=== PATIENT | male | born 1960 | race African-American/Black ===

== ENCOUNTER → 2017-08-29 | Outpatient (CLI) | payer BC ==
[2017-08-29 09:17] LABS: BASOPHILS % 0.9 % (0.0-2.0); EOSINOPHILS % 7.5 % (0.0-5.0); LYMPHOCYTES % 31.9 % (20.0-50.0); MEAN CORPUSCULAR HEMOGLOBIN 29.6 pg (28.0-32.0); MEAN CORPUSCULAR VOLUME 88.6 fL (80.0-94.0); MEAN PLATELET VOLUME 7.9 fl (7.4-10.4); MONOCYTES % 8.9 % (2.0-8.0); NEUTROPHILS % 50.8 % (40.0-76.0); PLATELET 227 x1000/uL (130-400); RED BLOOD CELL COUNT 4.06 mill/uL (4.7-6.1)
[2017-08-29 09:27] LABS: PARTIAL THROMBOPLASTIN TIME 29.9 sec (23.4-31.0); PROTHROMBIN TIME 10.8 sec (9.4-11.6)
[2017-08-29 10:00] LABS: GLUCOSE URINE NEGATIVE (NEGATIVE); KETONES URINE NEGATIVE (NEGATIVE); LEUKOCYTE ESTERASE URINE NEGATIVE (NEGATIVE); NITRITE URINE NEGATIVE (NEGATIVE); OCCULT BLOOD URINE NEGATIVE (NEGATIVE); PH URINE 5.5 (4.5-8.0); PROTEIN URINE NEGATIVE (NEGATIVE); SPECIFIC GRAVITY URINE 1.022 (1.005-1.030); UROBILINOGEN URINE 0.2 E.U./dL (0.2-1.0)
[2017-08-29 10:04] LABS: CLARITY URINE CLEAR (CLEAR); COLOR URINE YELLOW (YELLOW)
[2017-08-29 11:07] LABS: CARBON DIOXIDE 26 mEq/L (21-32); CHLORIDE 105 mEq/L (98-107); HDL CHOLESTEROL 47 mg/dL (40-59); LDL CHOLESTEROL 102 mg/dL (5-100)
== END | disposition home or self-care (01) ==
LOC: LAB 08:45
PROVIDERS: ATTEND Family Medicine
DX: Z01.818 Encounter for other preprocedural examination (principal)
CPT/HCPCS: 36415; 80053; 80061; 81003; 85025; 85610; 85730

== ENCOUNTER 2017-09-04 09:32 | Day surgery (SDC) | payer BC ==
[~2017-09-04] VITALS: Ht 195.6 cm; Wt 109.8 kg
[2017-09-04] MEDS ORDERED: NORMAL SALINE 0.9% 10 ML SYR ONE (10:09)
[2017-09-04] MEDS ORDERED: SKIN ADHESIVE 0.7 GM EA TOP ONE (10:09)
[2017-09-04] MEDS ORDERED: BACITRACIN ZINC 15GM TUBE TOP ONE (10:09)
[2017-09-04] MEDS ORDERED: BUPIVACAINE HCL/PF 0.25% (2.5MG/ML) 10ML ONE (10:09)
[2017-09-04] MEDS ORDERED: BUPIVACAINE HCL 0.5% (5MG/ML) 50ML ONE (10:10)
[2017-09-04] MEDS ORDERED: BACITRACIN 50,000 UNITS/VIAL ONE (10:10)
[2017-09-04] MEDS ORDERED: LACTATED RINGERS 1,000 ML IV SCH (10:30)
[2017-09-04] MEDS ORDERED: FENTANYL CITRATE/PF 50MCG/ML 2ML VIAL ONE (11:10)
[2017-09-04] MEDS ORDERED: MIDAZOLAM HCL 2 MG/2 ML VIAL ONE (11:10)
[2017-09-04] MEDS ORDERED: HYDROMORPHONE HCL/PF 2MG/ML CPJ IV PRN (11:15)
[2017-09-04] MEDS ORDERED: MEPERIDINE HCL/PF 25MG/ML CPJ IV PRN ×2 (11:15)
[2017-09-04] MEDS ORDERED: LABETALOL HCL 20MG/4ML CARPUJECT IV PRN ×2 (11:15)
[2017-09-04] MEDS ORDERED: ONDANSETRON HCL 4MG/2ML VIAL IV PRN ×2 (11:15)
[2017-09-04] MEDS ORDERED: GLYCOPYRROLATE 0.2 MG/ML 2ML VIAL ONE (14:44)
[2017-09-04] MEDS: HYDROMORPHONE HCL/PF 2MG/ML CPJ IV PRN ×2 (15:08→16:24)
[2017-09-04] MEDS ORDERED: HYDROCODONE/ACETAMINOPHEN 5/325MG TABLET PO PRN (17:35)
[2017-09-04 17:41] VITALS: BP 132/82
== END 2017-09-04 19:00 | disposition home or self-care (01) ==
LOC: OR 09:32
PROVIDERS: ATTEND Surgery
DX: K42.9 Umbilical hernia without obstruction or gangrene (principal); G47.30 Sleep apnea, unspecified; M17.0 Bilateral primary osteoarthritis of knee; Z79.899 Other long term (current) drug therapy; Z20.1 Contact with and (suspected) exposure to tuberculosis; Z98.890 Other specified postprocedural states; Z86.010 Personal history of colon polyps
CPT/HCPCS: 49652; C1781; G0168; J1170; J2250; J3010; J3490; J7120; A4216

== ENCOUNTER → 2019-03-26 | Outpatient (CLI) | payer BC ==
[~2019-03-26] MED LIST: BARIUM SULFATE(VOLUMEN) 450 ML ORAL.SUSP ONE; IOHEXOL-350 100 ML BOTTLE ONE
== END | disposition home or self-care (01) ==
LOC: CT 09:04
PROVIDERS: ATTEND Internal Medicine Gastroenterology
DX: K29.50 Unspecified chronic gastritis without bleeding (principal)
CPT/HCPCS: 74177; Q9967

== ENCOUNTER → 2022-03-15 | Outpatient (CLI) | payer BC ==
[2022-03-15 15:39] LABS: BASOPHILS % 0.5 % (0.0-2.0); EOSINOPHILS % 9.7 % (0.0-5.0); HEMATOCRIT. 36.9 % (42.0-52.0); HEMOGLOBIN. 12.2 g/dL (14.0-18.0); LYMPHOCYTES % 32.4 % (20.0-50.0); MEAN CORPUSCULAR HEMOGLOBIN 29.7 pg (28.0-32.0); MEAN CORPUSCULAR VOLUME 90.1 fL (80.0-94.0); MEAN PLATELET VOLUME 7.5 fl (7.4-10.4); MONOCYTES % 9.3 % (2.0-8.0); NEUTROPHILS % 48.1 % (40.0-76.0); PLATELET 262 x1000/uL (130-400); RED CELL DISTRIBUTION WIDTH 13.4 % (11.6-14.6)
[2022-03-15 16:05] LABS: TOTAL IRON BINDING CAPACITY 344 ug/dL (250-450)
== END | disposition home or self-care (01) ==
LOC: LAB 15:06
PROVIDERS: ATTEND Internal Medicine Gastroenterology
DX: Z12.11 Encounter for screening for malignant neoplasm of colon (principal)
CPT/HCPCS: 36415; 82306; 82728; 83540; 83550; 85025; 85044